=== PATIENT | male | born 1965 | race Caucasian/White ===

== ENCOUNTER 2024-02-18 19:54 | Emergency (ER) | payer MEDICARE, MEDICAID ==
[~2024-02-18] VITALS: Ht 175.3 cm; Wt 56.2 kg
[~2024-02-18 19:54] MED LIST: IBUP-1986 PO; NO HOME MEDS
[2024-02-18 21:51] VITALS: BP 135/83; PULSE 79; RESP 16; TEMP 99.1; O2SAT 99
[2024-02-18] MEDS ORDERED: ACET-1025 PO (22:27)
[2024-02-18] MEDS ORDERED: AMOX-580 PO (22:27)
[2024-02-18] MEDS ORDERED: IBUP-1986 PO (22:28)
[2024-02-18] MEDS ORDERED: MUPI22OI30 TOP (22:28)
== END 2024-02-18 22:45 | disposition home or self-care (01) ==
LOC: ER 19:55
DX: R50.9 Fever, unspecified (principal); J01.30 Acute sphenoidal sinusitis, unspecified; L01.09 Other impetigo; F31.9 Bipolar disorder, unspecified; Z88.8 Allergy status to other drugs, medicaments and biological substances; Z79.2 Long term (current) use of antibiotics; Z79.1 Long term (current) use of non-steroidal anti-inflammatories (NSAID); Z79.899 Other long term (current) drug therapy; Z20.822 Contact with and (suspected) exposure to COVID-19
CPT/HCPCS: 36415; 87811; 99283

== ENCOUNTER 2025-02-08 08:23 | Outpatient (CLI) | payer MEDICARE ==
--- NOTE | 2025-02-08 12:51 | RADIOLOGY REPORT ---
CT Chest without intravenous contrast INDICATION: NICOTINE DEPENDENCE,CIGARETTES TECHNIQUE: Multidetector spiral CT of the chest was performed from the lung apices to the upper abdom en. Axial, coronal and sagittal multiplanar reformats were performed. Radiation dose : Chest: CTDI volume is 1 mGy. Dose-length product is 73 mGy*cm The dose indicators for CT are the volume computed tomography (CT) dose index (CTDIvol) and the dose length product (DLP), and are measured in units of mGy and mGy-cm, respectively. These indicators are not patient dose, but values generated from the CT scanner acquisition factors. The report includes radiation exposure data for exposures received during this examination. Comparison: None Findings: Lower neck: Normal thyroid. Lungs: Mild nodularity along the left major fissure. Atelectasis and scarring in the lung bases. Heart/Vascular Structures: Normal heart size. No pericardial effusion. Moderate coronary artery calci fications. Lymph Nodes: Prominent precarinal lymph node measuring up to 10 mm. Pleura: No pleural effusion or significant pneumothorax. Musculoskeletal: No acute osseous abnormality. Soft tissues: Normal. Upper abdomen: Limited portions of the upper abdomen are unremarkable. IMPRESSION: 1. No suspicious pulmonary nodule. Lung rads 1-negative. Prominent precarinal lymph node. Attention on follow-up is recommended. Radiation optimization: All CT scans at this facility use at least one of these dose optimization meaghan hniques: Automated exposure control mA and/or kV adjustment per patient size (includes targeted exams where dose is matched to clinical indication) or iterative reconstruction. HS:Y
== END 2025-02-08 23:59 | disposition home or self-care (01) ==
LOC: RAD 08:23
PROVIDERS: ATTEND Family Medicine
DX: Z12.2 Encounter for screening for malignant neoplasm of respiratory organs (principal); F17.210 Nicotine dependence, cigarettes, uncomplicated; J98.11 Atelectasis; J98.4 Other disorders of lung; I25.10 Atherosclerotic heart disease of native coronary artery without angina pectoris; R59.0 Localized enlarged lymph nodes
CPT/HCPCS: 71271